=== PATIENT | female | born 2000 | race Caucasian/White ===

== ENCOUNTER 2022-09-06 15:56 | Observation (INO) | payer OTHER, SELFPAY ==
[2022-09-06 16:14] VITALS: BP 111/66; PULSE 112
[2022-09-06 16:30] VITALS: BP 111/65; PULSE 106
[2022-09-06 16:37] VITALS: BMI 25.0
--- NOTE | 2022-09-06 16:38 | LDADM ---
This patient, Helene Marshall, was admitted to OB Post [facility] on 09/06/22 at 15:56. Plans for labor, pain management and were discussed with patient. Patient/family oriented to hospital policies and general routines including ID bracelet, bed and alarms, visiting hours, pain management, procedures, bathroom and other care routines, personal items, smoking policy, room service/diet and guest tray routines, security routines, and visiting hours. Patient/Family are encouraged to report perceived risks to care and to ask questions if they do not understand what they are told or what they should do. See OBIX for further documentation.
[2022-09-06 16:45] VITALS: BP 102/63; PULSE 101
[2022-09-06 16:52] LABS: Appearance Urine Cloudy (Clear); Bacteria Urine Rare /hpf; Bilirubin Urine Negative (Negative); Blood Urine Negative (Negative); Color Urine Yellow (Yellow); Glucose Urine UA Negative (Negative); Ketones Urine Trace mg/dL (Negative); Leukocyte Esterase Ur 2+ LEU/UL (Negative); Nitrate Urine Negative (Negative); Non Pathogenic Casts 0-2; Protein Urine Trace mg/dL (Negative); RBC Urine 0-2 /hpf (0-2); Specific Grav Ur 1.017 (1.001-1.035); Squamous Epithelial Cell Urine Moderate /hpf (Few); WBC Urine 51-100 /hpf; pH Urine 6.5 (5.0-9.0)
[2022-09-06 16:59] LABS: Add Urine Microscopic? YES
[2022-09-06 17:00] VITALS: BP 108/70; PULSE 88
--- NOTE | 2022-09-06 17:14 | PC.NURSE ---
Patient admitted for observation at 1556 with complaints of hypotension and lightheadedness today at work as well as mild abdominal cramping she is rating a 2/10 on the pain scale. tracing is reassuring. Patient PO hydrated and no longer feels cramping or lightheaded. BP measurements have all been within normal limits. UA sent. Paged Dr. Becerra at 1712. returned call at 1713. MD notified of lab results as well as maternal/ status. Verbal orders received for discharge.
--- NOTE | 2022-09-12 09:38 | P.PNOB_ITS ---
OB - Triage/Final Diagnosis Visit Information Reason for evaluation: other ( low blood pressure while ) Comments/Additional reasons for admission: I have assessed the risk for this patient, Helene Marshall, and determined that she would benefit from observation care. Evaluation Laboratory results: Laboratory Tests 09/06/22 16:25 Urine Color Yellow Urine Appearance Cloudy H Urine pH 6.5 Ur Specific [place] 1.017 Urine Protein Trace Urine Glucose (UA) Negative Urine Ketones Trace H Ur Blood (Man) Negative Urine Nitrate Negative Urine Bilirubin Negative Urine Urobilinogen 1.0 Leukocyte Esterase Rfl 2+ H Urine RBC 0-2 Urine WBC 51-100 H Ur Squamous Epith Cells Moderate Urine Bacteria Rare Urine Casts 0-2
== END 2022-09-06 17:38 | disposition home or self-care (01) ==
PROVIDERS: Admitting Provider Obstetrics & Gynecology Gynecology; Visit Provider Obstetrics & Gynecology Gynecology
DX: O26.52 Maternal hypotension syndrome, second trimester (principal); O26.892 Other specified pregnancy related conditions, second trimester; R10.9 Unspecified abdominal pain; Z3A.27 27 weeks gestation of pregnancy
CPT/HCPCS: 81001; 87086; G0378; G0379

== ENCOUNTER 2022-09-16 10:04 | Outpatient (CLI) | payer OTHER, SELFPAY ==
--- NOTE | ~2022-09-16 | US_ITS ---
EXAMINATION: US OB follow up DATE: 09/16/2022 10:55 INDICATION: Size less than dates during second trimester TECHNIQUE: Real-time ultrasound of the pelvis was performed. The interpreting radiologist was not pre sent for the study. COMPARISON: None. FINDINGS: There is a single living fetus in vertex presentation. The placenta is left/posterior. Feta l cardiac activity and movement are noted. heart rate is 169 beats per minute (bpm). The amniotic fluid index is 16 cm which is normal. The following biometric data were obtained: Biparietal diameter (BPD): 6.9 cm; head circumference (HC): 27 cm; abdominal circumference (AC): 24.6 cm; femur length (FL): 5.6 cm. These measurements are concordant. Estimated weight is 1260 g +/- 188 g, which correlates with the 29th percentile when 12/03/2022 is used as estimated date of delivery. As single measurements, these parameters are each equal to the following estimated gestational ages w ith ranges of +/- 2 standard deviations: BPD: 27 weeks 5 days +/- 2 weeks 1 days. HC: 29 weeks 3 days +/- 2 weeks 0 days. AC: 28 weeks 0 days +/- 2 weeks 1 days. FL: 29 weeks 4 days +/- 2 weeks 1 days. estimated gestational age based solely on measurements from this exam is 28 weeks 5 days +/- 2 weeks 0 days. IMPRESSION: 1. Single living fetus in vertex presentation. 2. Normal amniotic fluid index. 3. Estimated weight is 1260 g +/- 188 g, which correlates with the 29th percentile when 12/04/19 23 is used as estimated date of delivery. Reviewed, dictated and finalized at location B. IMPRESSION: 1. Single living fetus in vertex presentation. 2. Normal amniotic fluid index. 3. Estimated weight is 1260 g +/- 188 g, which correlates with the 29th p ercentile when 12/03/2022 is used as estimated date of delivery.
== END 2022-09-16 10:05 | disposition home or self-care (01) ==
PROVIDERS: Visit Provider Obstetrics & Gynecology Gynecology
DX: O36.5930 Maternal care for other known or suspected poor fetal growth, third trimester, not applicable or unspecified (principal)
CPT/HCPCS: 76816

== ENCOUNTER 2022-09-27 00:49 | Outpatient (RCR) | payer OTHER, SELFPAY ==
--- NOTE | 2022-09-27 01:39 | PC.NURSE ---
Dr. Becerra callled about pt here for DFM, pt is now feeling movement with a reactive NST, no contractions or other complaints. Orders to d/c patient home.
== END 2022-12-26 23:59 | disposition home or self-care (01) ==
LOC: ANHOBOP 00:49
PROVIDERS: Visit Provider Obstetrics & Gynecology Gynecology
DX: O36.8130 Decreased fetal movements, third trimester, not applicable or unspecified (principal); Z3A.30 30 weeks gestation of pregnancy
CPT/HCPCS: 59025

== ENCOUNTER 2022-10-12 13:21 | Outpatient (CLI) | payer OTHER, SELFPAY ==
--- NOTE | ~2022-10-12 | US_ITS ---
EXAMINATION: US OB follow up DATE: 10/12/2022 14:43 INDICATION: Size greater than dates. TECHNIQUE: Real-time transabdominal obstetric ultrasound. FINDINGS: Comparison to ultrasound dated 09/16/2022 There is a single living fetus in vertex presentation. The placenta is posterior without placenta pr evia. cardiac activity and movement is noted with a heart rate of 135 beats per minute. T he amniotic fluid volume is normal. RYAN measures 10.9 cm. The following biometric data were obtained: BPD: 80mm corresponds to gestational age 32 weeks 0 days. Head circumference: 298mm corresponds to gestational age 33 weeks 0 days. Abdominal circumference: 280mm corresponds to gestational age 32 weeks 0 days. Femur length: 66mm corresponds to gestational age 34 weeks 0 days. Estimated weight: 2032grams +/- 305grams, 44%.] IMPRESSION: 1. Single living intrauterine in vertex presentation with an estimated gestational age of 32 weeks 4 days by inititial ultrasound. Appropriate interval growth. Reviewed, dictated and finalized at location A. IMPRESSION: 1. Single living intrauterine in vertex presentation with an estimat ed gestational age of 32 weeks 4 days by inititial ultrasound. Appropriate int erval growth.
== END 2022-10-12 13:22 | disposition home or self-care (01) ==
PROVIDERS: Visit Provider Obstetrics & Gynecology Gynecology
DX: O26.843 Uterine size-date discrepancy, third trimester (principal); Z3A.32 32 weeks gestation of pregnancy
CPT/HCPCS: 76816

== ENCOUNTER 2022-10-23 18:54 | Outpatient (CLI) | payer OTHER, SELFPAY ==
[2022-10-23] VITALS (7 sets, daily range): BP systolic 98–115; BP diastolic 55–83; PULSE 96–111
[2022-10-24 04:35] LABS: Glucose Point of Care 88 mg/dl (65-105)
== END 2022-10-23 21:20 | disposition home or self-care (01) ==
LOC: ANHOBOP 18:57 → ANHOBPP 18:57
PROVIDERS: Visit Provider Obstetrics & Gynecology Gynecology
DX: O36.8190 Decreased fetal movements, unspecified trimester, not applicable or unspecified (principal); R73.9 Hyperglycemia, unspecified
CPT/HCPCS: 82948; 99199

== ENCOUNTER 2022-11-02 19:46 | Observation (INO) | payer OTHER, SELFPAY ==
--- NOTE | 2022-11-04 18:29 | PM.OBTRLD ---
OB - Triage/Final Diagnosis Visit Information Date of evaluation: 11/03/22 Reason for evaluation: threatened labor Comments/Additional reasons for admission: I have assessed the risk for this patient, Helene Marshall, and determined that she would benefit from observation care.
== END 2022-11-02 21:36 | disposition home or self-care (01) ==
PROVIDERS: Admitting Provider Advanced Practice Midwife; Visit Provider Advanced Practice Midwife
DX: O47.9 False labor, unspecified (principal); Z3A.00 Weeks of gestation of pregnancy not specified
CPT/HCPCS: G0378; G0379

== ENCOUNTER 2022-11-07 21:48 | Observation (INO) | payer OTHER, SELFPAY ==
--- NOTE | 2022-11-07 23:10 | PC.NURSE ---
Pt had a wet spot on her chux when she got up. ROM plus obtained.
--- NOTE | 2022-11-13 05:01 | PM.OBTRLD ---
OB - Triage/Final Diagnosis Visit Information Date of evaluation: 11/07/22 Reason for evaluation: threatened labor Comments/Additional reasons for admission: I have assessed the risk for this patient, Helene Marshall, and determined that she would benefit from observation care.
== END 2022-11-07 23:55 | disposition home or self-care (01) ==
PROVIDERS: Admitting Provider Advanced Practice Midwife; Visit Provider Advanced Practice Midwife
DX: O47.03 False labor before 37 completed weeks of gestation, third trimester (principal); Z3A.36 36 weeks gestation of pregnancy
CPT/HCPCS: 84112; G0378; G0379

== ENCOUNTER 2022-11-14 23:44 | Inpatient (IN) | payer OTHER, SELFPAY ==
[2022-11-15] VITALS (96 sets, daily range): BP systolic 82–239; BP diastolic 40–216; PULSE 79–217; RESP 18; TEMP 36.5–37.3; O2SAT 80–100; BMI 27.3
[2022-11-15 04:46] LABS: Glucose Point of Care 88 mg/dl (65-105)
[2022-11-15 04:48] LABS: Basophils Percent Auto 0.2 % (0.2-1.2); Eosinophils Percent Auto 0.4 % (0-4.4); Hematocrit 28.2 % (37.0-47.0); Hemoglobin 8.1 g/dL (12.0-15.0); Immature Granulocyte Absolute 0.06 K/mm3 (0.00-0.031); Immature Granulocyte Percent A 0.6 % (0-0.5); Lymphocytes Absolute Auto 1.71 K/mm3 (0.9-3.2); Lymphocytes Percent Auto 16.9 % (18.3-44.2); Mean Corpuscular HGB Conc 28.7 g/dl (32-36); Mean Corpuscular Hemoglobin 20.5 pg (26-34); Mean Corpuscular Volume 71.4 fl (80-100); Mean Platelet Volume 12.3 fl (7.4-10.4); Monocytes Absolute Auto 0.9 K/mm3 (0.1-0.6); Monocytes Percent Auto 8.8 % (2.6-8.5); Neutrophils Absolute Auto 7.4 K/mm3 (1.3-6.7); Neutrophils Percent Auto 73.1 % (45.5-73.1); Platelet Count Result 199 k/mm3 (150-375); Red Blood Count 3.95 M/mm3 (4.2-5.4); Red Cell Distribution Width 16.7 % (11.5-14.5); White Blood Count 10.1 K/mm3 (4.5-10.0)
--- NOTE | 2022-11-15 04:54 | LDADM ---
This patient, Helene Marshall, was admitted to Labor/Delivery/Recovery 107 on 11/14/22 at 23:44. Plans for labor, pain management and were discussed with patient. Patient/family oriented to hospital policies and general routines including ID bracelet, bed and alarms, visiting hours, pain management, procedures, bathroom and other care routines, personal items, smoking policy, room service/diet and guest tray routines, infant security routines, and visiting hours. Patient/Family are encouraged to report perceived risks to care and to ask questions if they do not understand what they are told or what they should do. See OBIX for further documentation.
[2022-11-15] MEDS: AMPICILLIN 2 GM/NS 100 ML 2 GM/100 ML BAG IVPB (05:02)
[2022-11-15] MEDS: LACTATED RINGERS 1,000 ML 125 ML IV CONT ×2 (05:08→13:19)
[2022-11-15 06:24] LABS: Glucose Point of Care 84 mg/dl (65-105)
--- NOTE | 2022-11-15 07:37 | WPDHPUPDATE1 ---
History and Physical Update Update Date/Time: 11/15/22 07:37 History and Physical has been reviewed, including an updated exam of the patient. There are NO changes in the patient's condition. Risks, benefits, and alternatives have been discussed and questions answered. Patient agrees to proceed with procedure.
--- NOTE | 2022-11-15 07:38 | PM.OBPNLAB ---
Pain Control Date/time seen: 11/15/22 07:15 Pain control: tolerating well Comments: Reports irregular contractions. Waiting on FOB to arrive and then plans to ambulate in hallway. Pelvic Exam Comments: no exam at this time. Contractions Monitor mode: External Contraction pattern: Irregular Contraction intensity: Moderate Status status: Category l Assessment and Plan Plan: continuous present management Comments: CNM at bedside. 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 Discussed option of braking water. Pt will consider, but plan to wait until 2nd dose of antibiotics is infusing. Pt plans unmedicated delivery. Anticipate vaginal . Dr. Becerra updated.
[2022-11-15] MEDS: AMPICILLIN 1 GM/NS 50 ML 1 GM/50 ML BAG IVPB ×2 (08:51→13:24)
[2022-11-15 08:58] LABS: Glucose Point of Care 87 mg/dl (65-105)
[2022-11-15 09:58] LABS: Rapid Plasma Reagin Non-Reactive (NonReactive)
--- NOTE | 2022-11-15 10:51 | PM.OBPNLAB ---
Pain Control Date/time seen: 11/15/22 10:45 Pain control: tolerating well Comments: Feeling consistent period like cramping Pelvic Exam Dilation (cm): 5 Effacement (%): 80 station: -2 Amniotic membrane status: Intact Comments: head well applied to cervix. Contractions Monitor mode: External Contraction pattern: Irregular Contraction intensity: Moderate Status status: Category l Comments: Baseline 135, + accelerations. Assessment and Plan Comments: CNM to bedside. Discussed plan of care an option for amniotomy. Discussed risks, benefits, and expectations of breaking water. Patient is agreeable. Amniotomy performed and there was a large return of clear amniotic fluid. Patient tolerated procedure well. Anticipate vaginal . Dr. Becerra updated.
[2022-11-15 11:12] LABS: Glucose Point of Care 95 mg/dl (65-105)
[2022-11-15 12:33] LABS: Glucose Point of Care 79 mg/dl (65-105)
--- NOTE | 2022-11-15 12:52 | WPDANESEPPF ---
Anes - Initial Pre Proc Eval Procedure: Labor Epidural Date/Time: 11/15/22 12:52 Surgeon: Gabriella Becerra MD Pre Op Diagnosis: Labor pain Pre Op Diagnosis: Contractions Patient Data Age: 22 Gender: F Height: 1.6 m Weight: 70 kg Last Vital Signs Temp 37.3 C 11/15/22 09:00 Pulse 108 H 11/15/22 12:17 BP 110/69 11/15/22 12:17 Allergies Allergy/AdvReac Type Severity Reaction Status Date / Time azithromycin Allergy Hives Verified 11/04/22 12:06 Home Medications Medication Instructions Recorded Confirmed Type insulin NPH isoph U-100 human 100 4 unit subcut HS 11/04/22 11/04/22 History unit/mL subcutaneous suspension (Humulin N NPH U-100 Insulin (isophane susp)) Laboratory Tests 11/15/22 11/15/22 11/15/22 04:21 04:41 06:18 WBC 10.1 H K/mm3 (4.5-10.0) RBC 3.95 L M/mm3 (4.2-5.4) Hgb 8.1 L g/dL (12.0-15.0) Hct 28.2 L % (37.0-47.0) MCV 71.4 L fl (80-100) MCH 20.5 L pg (26-34) MCHC 28.7 L g/dl (32-36) RDW 16.7 H % (11.5-14.5) Plt Count 199 k/mm3 (150-375) MPV 12.3 H fl (7.4-10.4) Immature Gran % (Auto) 0.6 H % (0-0.5) Neut % (Auto) 73.1 % (45.5-73.1) Lymph % (Auto) 16.9 L % (18.3-44.2) [place] % (Auto) 8.8 H % (2.6-8.5) Eos % (Auto) 0.4 % (0-4.4) Baso % (Auto) 0.2 % (0.2-1.2) Lymph # (Auto) 1.71 K/mm3 (0.9-3.2) [place] # (Auto) 0.9 H K/mm3 (0.1-0.6) Eos # (Auto) 0.0 K/mm3 (0-0.3) Baso # (Auto) 0.0 K/mm3 (0.0-0.1) Abs Immat Gran (auto) 0.06 H K/mm3 (0.00-0.031) Absolute Neuts (auto) 7.4 H K/mm3 (1.3-6.7) Absolute Nucleated RBC 0.0 K/mm3 (0.0-0.012) Nucleated RBC % 0.0 % (0.0-0.2) POC Capillary Glucose 88 mg/dl 84 mg/dl (65-105) (65-105) RPR Non-reactive (NonReactive) Blood Type A Positive Antibody Screen Negative 11/15/22 11/15/22 11/15/22 08:53 11:07 12:09 WBC RBC Hgb Hct MCV MCH MCHC RDW Plt Count MPV Immature Gran % (Auto) Neut % (Auto) Lymph % (Auto) [place] % (Auto) Eos % (Auto) Baso % (Auto) Lymph # (Auto) [place] # (Auto) Eos # (Auto) Baso # (Auto) Abs Immat Gran (auto) Absolute Neuts (auto) Absolute Nucleated RBC Nucleated RBC % POC Capillary Glucose 87 mg/dl 95 mg/dl 79 mg/dl (65-105) (65-105) (65-105) RPR Blood Type Antibody Screen : gestational age (ZACH 12/03/22) Patient hx anesthesia problems: none Family hx anesthesia problems: none Results Review: All pre-operative results and documents have been reviewed as part of the pre-operative evaluation. [facility] Family History Family History Other Unknown family medical history Social History Social History Smoking status: Never smoker Substance use: never Lack of Transportation: No Lack of Food: Never True Current Housing: I Have Housing Concerned About Future Housing: No Difficulty Paying Gas/Electric Bills: No Difficulty Paying for Meds: No Currently Unemployed: No Education: Grade School Difficulty w/ Childcare or Family Care: No Spiritual care concerns: No Anes - Eval Final PreProcedure Day of Procedure 11/15/22 12:52 Results Review: All pre-operative results and documents have been reviewed as part of the pre-operative evaluation. Informed Consent: The patient's anesthetic
[2022-11-15] MEDS: CALCIUM CARBONATE (TUMS) 500 MG (200 MG ELEMENTAL) PO (13:24)
[2022-11-15] MEDS: OXYTOCIN 30 UNITS/NS 500 ML 30 UNITS/500 ML BAG IV CONT (13:27)
[2022-11-15 13:36] LABS: Glucose Point of Care 89 mg/dl (65-105)
[2022-11-15 15:16] LABS: Glucose Point of Care 75 mg/dl (65-105)
--- NOTE | 2022-11-15 16:06 | PM.OBPRVD ---
OB - Delivery Note Procedure Delivery date: 11/15/22 Procedure: Events: Gestational Diabetes (GDMA2) and Positive Group B Strep (GBS) Induction method: None Delivery augmentation: Rupture of Membranes Delivery monitor: External FHT and External Uterine Route of delivery: Episiotomy description: None Laceration Description: None Specimen: Yes Quantitative Blood Loss (ml): 50 Anesthesia type: Epidural Disposition: Floor Narrative: Patient arrived having irregular uterine contractions. She made change from 4-5 cm. 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 She latently labored overnight but did not make further cervical change. Amniotomy was performed and she progressed to complete dilation with oxytocin augmentation. She pushed very well and delivered the head over an intact perineum. There was a loose nuchal cord noted. The was delivered to the somersault maneuver with easy delivery of the anterior and posterior shoulders. The infant was placed on the maternal abdomen and care was transferred to nursery staff. After approximately 20 seconds of life, nursery staff requests that the cord be doubly clamped and cut. This was done and the was taken to the warmer. Cord blood, cord gases, and cord segment were obtained. The placenta delivered spontaneously in the [place] presentation. Also recounts were correct. There was excellent hemostasis and uterine tone. Baby Date of : 11/15/22 Time of : 15:48 Weeks of gestation at delivery: 37 gender: Male Weight (pounds): 6 Weight (ounces): 15 presentation: vertex position: Left Occiput Anterior Placenta delivery description: Spontaneous and Normal Configuration (slight marginal insertion) Cord Vessel Description: 3 Vessels, Nuchal Cord, Loose and Clamped/Cut
--- NOTE | 2022-11-15 16:12 | PM.OBDSVD ---
DS: Admitting Diagnosis Discharge Date 11/15/22 Admitting Diagnosis 22 y.o at 37 weeks gestation GDMA2 GBS+ Anxiety/depression Vape use in DS: Discharge Diagnosis Discharge Diagnosis (1) Anxiety: Code(s): F41.9 - Anxiety disorder, unspecified Status: Acute (2) Depression: Code(s): F32.A - Depression, unspecified Status: Acute (3) (normal spontaneous vaginal delivery): Code(s): O80 - Encounter for full-term uncomplicated delivery Status: Acute (4) Anemia: Code(s): D64.9 - Anemia, unspecified Status: Acute OB - DS: Summary Hospital Course Hospital Course: Uncomplicated OB Procedures : Ultrasound and Other (Blood glucose monitoring) OB Procedures Intrapartum: Spontaneous Vag Delivery and GBS prophylaxis OB Procedures: : None Peripartum Data Infant Delivery Method: Natural Vaginal Laceration Description: None Episiotomy description: None complications: none Status at Discharge Functional status at discharge: independent ambulation Overall status at discharge: patient is progressing back to baseline Time Spent with Patient Time attestation: Total time spent providing and/or coordinating discharge services: DS: Data Data Completed and Pending Labs on day of discharge: Labs from last 24 hours 11/15/22 11/15/22 11/15/22 15:05 13:32 12:09 WBC RBC Hgb Hct MCV MCH MCHC RDW Plt Count MPV Immature Gran % (Auto) Neut % (Auto) Lymph % (Auto) [place] % (Auto) Eos % (Auto) Baso % (Auto) Lymph # (Auto) [place] # (Auto) Eos # (Auto) Baso # (Auto) Abs Immat Gran (auto) Absolute Neuts (auto) Absolute Nucleated RBC Nucleated RBC % POC Capillary Glucose 75 89 79 RPR Blood Type Antibody Screen 11/15/22 11/15/22 11/15/22 11:07 08:53 06:18 WBC RBC Hgb Hct MCV MCH MCHC RDW Plt Count MPV Immature Gran % (Auto) Neut % (Auto) Lymph % (Auto) [place] % (Auto) Eos % (Auto) Baso % (Auto) Lymph # (Auto) [place] # (Auto) Eos # (Auto) Baso # (Auto) Abs Immat Gran (auto) Absolute Neuts (auto) Absolute Nucleated RBC Nucleated RBC % POC Capillary Glucose 95 87 84 RPR Blood Type Antibody Screen 11/15/22 11/15/22 04:41 04:21 WBC 10.1 H RBC 3.95 L Hgb 8.1 L Hct 28.2 L MCV 71.4 L MCH 20.5 L MCHC 28.7 L RDW 16.7 H Plt Count 199 MPV 12.3 H Immature Gran % (Auto) 0.6 H Neut % (Auto) 73.1 Lymph % (Auto) 16.9 L [place] % (Auto) 8.8 H Eos % (Auto) 0.4 Baso % (Auto) 0.2 Lymph # (Auto) 1.71 [place] # (Auto) 0.9 H Eos # (Auto) 0.0 Baso # (Auto) 0.0 Abs Immat Gran (auto) 0.06 H Absolute Neuts (auto) 7.4 H Absolute Nucleated RBC 0.0 Nucleated RBC % 0.0 POC Capillary Glucose 88 RPR Non-reactive Blood Type A Positive Antibody Screen Negative Discharge Plan Discharge Attending physician on discharge: Gabriella Becerra Consulting providers: Marilee Davidson; Marysol Horn; Valeria Wheat Discharging Clinician: Gabriella Becerra Anticipated Discharge Date/Time: 11/15/22 16:14 Patient Disposition: Home, Self-Care Activity: july shower Diet: as tolerated Wound Care Instructions: follow printed instructions Discharge Instructions: Education: Mom and Baby Guide Given to: Mother Follow-Up: Call your delivering provider's office for an appointment to be seen in: 4 Weeks Mom and baby should come to the [facility] for the follow-up appointment. Appointment Date/Time: November 18, 2022 at 9:00 am What to expect at your follow-up visit: Blood Pressure Check Call [phone] if you are unable to keep your appointment time. BREAST CARE: * Wear a snug supportive bra. * For engorgement discomfort: Bottle Feeding: * May ap
[2022-11-15] MEDS: OXYTOCIN 30 UNITS/NS 500 ML 30 UNITS/500 ML BAG 125 UNITS IV CONT (16:22)
[2022-11-15] MEDS: ACETAMINOPHEN 325 MG TABLET 650 MG PO ×2 (16:36→23:50)
--- NOTE | 2022-11-15 19:00 | OBPPTRN ---
Patient transferred to post room #282 via w/c. Oriented to unit, room, information board, rooming in, admission packet and security measures. Patient verbalizes understanding.
[2022-11-15] MEDS: BENZOCAINE 20% AER SPR (*SP) 56 GM CAN 1 SPRAY TOPICAL (19:12)
[2022-11-15] MEDS: WITCH HAZEL 40 PADS 1 PAD TOPICAL (19:12)
[2022-11-15] MEDS: POLYSACCHARIDE IRON COMPLEX 150 MG CAPSULE PO (19:23)
[2022-11-15] MEDS: IBUPROFEN 600 MG TABLET PO (19:23)
[2022-11-16 00:10] VITALS: BP 112/73; PULSE 82; RESP 18; TEMP 36.8
[2022-11-16 05:01] LABS: Hematocrit 25.6 % (37.0-47.0); Hemoglobin 7.4 g/dL (12.0-15.0)
--- NOTE | 2022-11-16 07:45 | PC.NURSE ---
PT introductions made and plan of care discussed per post , pain management, bottle feeding, daily care activities and pending discharge to home. PT sole recipient of such instructions and no barriers to learning identified at this time. PT received such instructions per one to one discussion, mom baby care guide and demonstrations this shift. PT verbalized understanding of such care.
--- NOTE | 2022-11-16 08:08 | PM.OBPNVD ---
OB - PN: Subj Subjective Date/time seen: 11/16/22 0740 Patient comments: no complaints, pain well controlled and tolerating diet [place] baby status: doing well and bottle feeding well (pt reports some regurgitation) feeding status: exclusively bottle feeding Narrative: PPD 1 from . Denies heavy bleeding or passing large clots. Denies dizziness with ambulation or lightheadness. OB - PN: Obj Data Labs 11/16/22 04:27 Labs: Laboratory Results - last 24 hr 11/15/22 11/15/22 11/15/22 04:41 08:53 11:07 Hgb Hct POC Capillary Glucose 87 95 RPR Non-reactive 11/15/22 11/15/22 11/15/22 12:09 13:32 15:05 Hgb Hct POC Capillary Glucose 79 89 75 RPR 11/16/22 04:27 Hgb 7.4 L Hct 25.6 L POC Capillary Glucose RPR OB - PN A/P Assessment and Plan (1) Anemia: Code(s): D64.9 - Anemia, unspecified Status: Acute Assessment and Plan: plan IV iron (2) (normal spontaneous vaginal delivery): Code(s): O80 - Encounter for full-term uncomplicated delivery Status: Acute Assessment and Plan: findings WNL (3) Depression: Code(s): F32.A - Depression, unspecified Status: Acute Assessment and Plan: Mood stable (4) Anxiety: Code(s): F41.9 - Anxiety disorder, unspecified Status: Acute Plan day: 1 Plan: routine care Time Spent With Patient Time: Total time spent is greater than 50% in coordination of care (as documented) at patient's floor/unit and/or counseling patient: Review of Systems Review of Systems: All systems reviewed & are unremarkable except as noted in HPI and below Exam Narrative: Alert and oriented. Mood is pleasant and cooperative. Perineum with minimal edema. Fundus firm and below umbilicus. Const: General: cooperative, healthy appearing, no acute distress and alert Orientation/consciousness: patient oriented x3 Limitations: no limitations Resp: Effort & Inspection: normal respiratory effort and able to speak in complete sentences Auscultation: clear to auscultation bilaterally Cardio: Rate: regular rate GI: Inspection: normal to inspection Auscultation: normal bowel sounds : Speculum Exam - Vagina: vaginal bleeding OB/external & speculum: vaginal bleeding Skin: General skin exam: normal color and no rashes or lesions noted Neuro: General: patient oriented x3 and moves all extremities Cognition (Neuro): normal cognition Extrem: General: normal to inspection and no calf tenderness Psych: Appearance: grossly normal Mental Status: mental status grossly normal Affect: normal affect Thought process: Normal thought process present
[2022-11-16 08:25] VITALS: BP 114/69; PULSE 71; RESP 18; TEMP 36.6; O2SAT 100
[2022-11-16] MEDS: SODIUM CHLORIDE 0.9% IV 100 ML 60 ML (10:09)
--- NOTE | 2022-11-16 10:24 | WPDANLDPN2 ---
Anes-Prog Note L&D Date/Time: 11/16/22 10:24 Neuro status: Neuro function grossly intact. Cardiovascular status: normal Respiratory status: normal Airway patency: baseline Mental status: baseline Post-Op hydration status: normal Vital Signs: Last Vital Signs Temp 36.6 C 11/16/22 08:25 Pulse 71 11/16/22 08:25 Resp 18 11/16/22 08:25 BP 114/69 11/16/22 08:25 Pulse Ox 100 11/16/22 08:25 O2 Del Method Room Air 11/15/22 19:10 Pain score (VAS): 0 I/O: Intake & Output 11/15/22 11/16/22 11/16/22 23:59 07:59 15:59 Intake Total 550 Output Total 100 Balance 450 Post-procedural complaints: none Patient feedback: Patient satisfied with anesthetic care.
[2022-11-16] MEDS: IBUPROFEN 600 MG TABLET PO ×3 (10:33→23:30)
[2022-11-16] MEDS: MULTIVIT/MIN/PREN/FOL AC/IRON TABLET 1 TAB PO (10:33)
[2022-11-16] MEDS: DOCUSATE SODIUM 100 MG CAPSULE PO ×2 (10:33→17:48)
[2022-11-16] MEDS: ACETAMINOPHEN 325 MG TABLET 650 MG PO ×3 (10:34→23:30)
[2022-11-16] MEDS: POLYSACCHARIDE IRON COMPLEX 150 MG CAPSULE PO ×2 (10:34→17:48)
[2022-11-16] MEDS: IRON SUCROSE COMPLEX 200 MG in SODIUM CHLORIDE 0.9% IV 50 ML 120 MG IVPB (10:45)
[2022-11-16 13:06] VITALS: BP 97/57; PULSE 74; RESP 16; TEMP 36.9; O2SAT 100
[2022-11-16 20:12] VITALS: BP 105/73; PULSE 92; RESP 16; TEMP 36.6; O2SAT 99
[2022-11-17 05:31] LABS: Hematocrit 26.1 % (37.0-47.0); Hemoglobin 7.4 g/dL (12.0-15.0)
--- NOTE | 2022-11-17 07:00 | PC.NURSE ---
PT introductions made and plan of care discussed per post , pain management, bottle feeding, daily care activities and pending discharge to home. PT sole recipient of such instructions and no barriers to learning identified at this time. Pt received such instructions per mom baby care guide, demonstrations, one to one discussion this shift. PT verbalized understanding of such care.
--- NOTE | 2022-11-17 07:35 | PM.OBPNVD ---
OB - PN: Subj Subjective Date/time seen: 11/17/22 07:35 Patient comments: no complaints and pain well controlled baby status: doing well OB - PN: Obj Data Labs 11/17/22 03:53 Labs: Laboratory Results - last 24 hr 11/17/22 03:53 Hgb 7.4 L Hct 26.1 L OB - PN A/P Plan day: 2 Plan: routine care, discharge home, follow up 6 weeks and other (Plans DepoProvera ) Time Spent With Patient Time: Total time spent is greater than 50% in coordination of care (as documented) at patient's floor/unit and/or counseling patient: Exam : Bimanual exam- vagina & uterus: other (Uterus firm, nt @U)
[2022-11-17 07:45] VITALS: BP 117/78; PULSE 88; RESP 18; TEMP 36.6; O2SAT 100
--- NOTE | 2022-11-17 10:45 | PC.NURSE ---
Patient was given the opportunity to view the discharge video Mother & Baby Care, The First Two Weeks and to ask questions. Patient declined viewing the video and has been given the mother/baby guide for home reference. PT received discharge instructions per protocol and verbalized understanding of such care.
[2022-11-17] MEDS: ACETAMINOPHEN 325 MG TABLET 650 MG PO (11:00)
[2022-11-17] MEDS: DOCUSATE SODIUM 100 MG CAPSULE PO (11:01)
[2022-11-17] MEDS: POLYSACCHARIDE IRON COMPLEX 150 MG CAPSULE PO (11:01)
--- NOTE | 2022-11-17 11:30 | PC.NURSE ---
PT discharged to home ambulatory unaccompanied to waiting car. PT drove herself home though had been advised and instructed to find transportation home. PT states she understands but will drive home. Follow up appts confirmed
[2022-11-18 09:21] VITALS: BP 114/73; PULSE 85; RESP 18; TEMP 36.9; O2SAT 100
== END 2022-11-17 11:30 | disposition home or self-care (01) | DRG 560 ==
LOC: ANHLDR 11-15 16:15 → ANHOB2 11-15 19:36
PROVIDERS: Advanced Practice Midwife; Admitting Provider Obstetrics & Gynecology Gynecology; Visit Provider Obstetrics & Gynecology Gynecology
DX: O24.424 Gestational diabetes mellitus in childbirth, insulin controlled (principal); Z37.0 Single live birth; O62.3 Precipitate labor; O99.824 Streptococcus B carrier state complicating childbirth; O69.81X0 Labor and delivery complicated by cord around neck, without compression, not applicable or unspecified; O99.02 Anemia complicating childbirth; Z3A.37 37 weeks gestation of pregnancy
CPT/HCPCS: 36415; 82948; 85014; 85018; 85025; 86592; 86850; 86900; 86901; 88307; A9270; J0290; J1050; J1756; J2590; J2795; J7120

== ENCOUNTER 2024-11-19 15:11 | Outpatient (CLI) | payer OTHER, SELFPAY ==
--- NOTE | ~2024-11-19 | US_ITS ---
EXAMINATION: US OB /maternal detail DATE: 11/19/2024 17:13 INDICATION: Assess anatomy TECHNIQUE: Multiple obstetric sonographic images performed. FINDINGS: There is a single living fetus in variable presentation. The placenta is anterior and not low-lying. The placenta appears partially circumvallate with elevation of one side of the placenta. Anechoic fluid is seen alongside the elevated margin of the placenta and separate from the fetus by thin linear membrane which suggests some residual chorionic amniotic separation versus less likely small subchorionic hematoma. Cervical length measures 3.6 cm. Amniotic fluid volume is subjectively normal. heart motion is observed on the cine imaging. The following anatomy was identified as normal: Ventricles, choroid plexus, falx and cava septum pellucidum Cerebellum and cisterna magna Nuchal fold Upper lip Spine Four-chamber heart and left ventricular outflow tract views aside from an internal echogenic focus in the right ventricle. Right ventricular outflow tract view is nondiagnostic. Diaphragm Stomach Kidneys Bladder 3 vessel cord and cord insertion Bilateral upper and lower extremities including hands and feet The following biometric data were obtained: BPD: 4.3 cm -> 19 weeks 0 days Head circumference: 16.8 cm -> 19 weeks 3 days Abdominal circumference: 13.3 cm -> 18 weeks 5 days Femur length: 3.1 cm -> 19 weeks 5 days Head circumference to abdominal circumference ratio: 1.27 (normal range 1.09-1.26). These measurements are otherwise concordant. Estimated weight: 282 g (+/-) 42 g. or 10 oz. (+/-) 1 oz. IMPRESSION: 1. Single living fetus with variable presentation. 2. Gestational age by ultrasound of 19 weeks 2 day(s) (+/-) 1 week 2 day(s) with ultrasound estimated date of delivery (ZACH) of 04/13/2025. Please correlate with clinical information or earlier ultrasounds for most accurate ZACH. 3. Echogenic intracardiac focus within the right ventricle and nondiagnostic right ventricular outflow tract view. Otherwise normal survey. 4. Anterior placenta which appears partially circumvallate with elevation of one side of the placenta with adjacent likely small region of chorioamnionic separation versus less likely subchorionic hematoma. Reviewed, dictated and finalized at location A. IMPRESSION: 1. Single living fetus with variable presentation. 2. Gestational age by ultrasound of 19 weeks 2 day(s) (+/-) 1 week 2 day(s) w ith ultrasound estimated date of delivery (ZACH) of 04/13/2025. Please correlate with clinical information or earlier ultrasounds for most accurate ZACH. 3. Echogenic intracardiac focus within the right ventricle and nondiagnostic ri ght ventricular outflow tract view. Otherwise normal survey. 4. Anterior placenta which appears partially circumvallate with elevation of on e side of the placenta with adjacent likely small region of chorioamnionic sepa ration versus less likely subchorionic hematoma.
--- OUTSIDE RECORDS SUMMARY | 2024-11-19 15:22 | XMS_ITS | Clinical Summary ---
Author Organization [facility] Address [address] [place] [address] Care Team Providers Care Senior Sales Engineer Name Role Phone Gabriella Becerra MD Primary Care Provider Social History Tobacco Use Types Packs/Day Years Used Date Smoking Tobacco: Never Assessed Comments Unknown Sex and Gender Information Value Date Recorded Sex Assigned at Not on file Legal Sex Female 2:47 PM CDT Gender Identity Not on file Sexual Orientation Not on file Plan of Treatment Health Maintenance Due Date Last Done Comments Hepatitis C Virus (HCV) Screening 1998 Human Papillomavirus (HPV) Immunization (1 - 3-dose series) 2013 SARS-COV-2 Immunization ( season) 2023 Influenza Immunization (#1) 2024 Respiratory Syncytial Virus (RSV) Immunization (Adult) (1 - 1-dose 75+ series) 2073 Hepatitis B Immunization Completed 000, 1998, 1998 DTaP/Tdap/Td Immunization Discontinued 2012, 11/27/2003, 10/22/1999, Additional history exists TdaP Immunization Completed 11/22/2012 Meningococcal Immunization (ACWY) Aged Out No longer eligible based on patient's age to complete this topic Pneumococcal Immunization Combined Aged Out No longer eligible based on patient's age to complete this topic Rotavirus Immunization Aged Out No lo nger eligible based on patient's age to complete this topic Insurance MEDICAID [facility] [employer] Care Teams Senior Sales Engineer Relationship Specialty Start Date End Date Gabriella Becerra MD [address] [address] PCP - General Obstetrics & Gynecology 08/06/22
--- OUTSIDE RECORDS SUMMARY | 2024-11-19 15:22 | XMS_ITS | Clinical Summary ---
Author Organization [facility] Address [address] [place] [address] Phone Care Team Providers Care Director Of Income Tax Name Role Phone Unavailable Primary Care Provider Unavailabl e Social History Tobacco Use Types Packs/Day Years Used Date Smoking Tobacco: Never Assessed Comments Unknown Sex and Gender Information Value Date Recorded Sex Assigned at Not on file Legal Sex Female 8:22 AM CDT Gender Identity Not on file Sexual Orientation Not on file Plan of Treatment Health Maintenance Due Date Last Done Comments HPV VACCINES (1 - 3-dose series) 2013 DTAP/TDAP/TD VACCINES (1 - Tdap) 2017 HEPATITIS B VACCINES (1 of 3 - 19+ 3-dose series) 04/21 CERVICAL CANCER SCREENING 2019 HPV/Cotest (21-29) 2019 PAP SMEAR 2019 INFLUENZA VACCINE (#1) 2024 Insurance [facility] MEDICAID
--- OUTSIDE RECORDS SUMMARY | 2024-11-19 15:22 | XMS_ITS | Clinical Summary ---
Author Organization [facility] Address [address] [place] [address] Care Team Providers Care Call Or Contact Centre Team Leader Name Role Phone Unavailable Primary Care Provider Unavailabl e Source Comments [facility],non-owned Affiliates and Associated Physician Practices is amultiple site organization consisting of ambulatory clinics and hospital sitesin [place], [place]. This disclosure is being madepursuant to the Care Everywhere program and may not contain all information available regarding this patient. Last updated 17.[facility] Active Problems Patient Care Coordination No te Formatting of this note migh t be different from the original. 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 Gender Identity Not on file Sexual Orientation Not on file Plan of Treatment Health Maintenance Due Date Last Done Comments HIV SCREENING 2013 HPV VACCINE (1 - 3-dose series) 2013 HEPATITIS C SCREENING 05/06/2016 DTAP/TDAP/TD VACCINES (1 - Tdap) 2017 HEPATITIS B VACCINE (1 of 3 - 19+ 3-dose series) 2017 PAP SMEAR 2019 COVID-19 VACCINE (1 - 2023-2 5 season) 2023 DEPRESSION SCREENING 03/20/2024 INFLUENZA VACCINE (#1) 2024 ZOSTER VACCINE (1 of 2) 2048 HIB VACCINE Aged Out No longer eligi ble based on patient's age to complete this topic MENINGOCOCCAL (Group B) VACC INE SHARED DECISION-MAKING Aged Out No longer eligibl e based on patient's age to complete this topic MENINGOCOCCAL GROUPS A/C/Y/W VACCINE Aged Out No longer eligible b ased on patient's age to complete this topic PNEUMOCOCCAL VACCINE Aged Out No long er eligible based on patient's age to complete this topic Insurance [facility]
== END 2024-11-19 15:12 | disposition home or self-care (01) ==
PROVIDERS: Visit Provider Obstetrics & Gynecology Gynecology
DX: Z36.9 Encounter for antenatal screening, unspecified (principal)
CPT/HCPCS: 76805

== ENCOUNTER 2025-02-16 19:56 | Outpatient (CLI) | payer OTHER, SELFPAY ==
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
--- OUTSIDE RECORDS SUMMARY | 2025-02-16 20:03 | XMS_ITS | Clinical Summary ---
Author Organization [facility] Address [address] [place] [address] Care Team Providers Care Senior Mechanical Project Engineer Name Role Phone Gabriella Becerra MD [...] Comments Hepatitis C Virus (HCV) Screening 1998 Varicella Immunization (2 of 2 - 2-dose childhood series) 2002 12/04/2001 Human Papillomavirus (HPV) Immunization (1 - 3-dose series) 2013 Influenza Immunization (#1) 2024 SARS-COV-2 Immunization ( season) 2024 Respiratory Syncytial Virus (RSV) Immunization (Adult) [...] age to complete this topic Insurance MEDICAID [facility] Care Teams Senior Mechanical Project Engineer Relationship Specialty Start Date End Date Gabriella Becerra MD [address] [address] PCP - General Obstetrics & Gynecology 08/06/22
--- OUTSIDE RECORDS SUMMARY | 2025-02-16 20:03 | XMS_ITS | Clinical Summary ---
Author Organization [facility] Address [address] [place] [address] Care Team Providers Care Web Operations Lead Name Role Phone Unavailable Primary Care Provider Unavailabl e Source Comments [facility],non-owned Affiliates and Associated Physician Practices is amultiple site organization consisting of ambulatory clinics and hospital sitesin [place], [place], [place] and [place]. This disclosure is being madepursuant to the Care Everywhere program and may not contain all information available regarding this patient. Last updated 17.[facility] Allergies Active Allergy Reactions Criticality Noted Date Comments Azithromycin Unknown 12/10/2024 Active Problems Patient Care Coordination No te Formatting of this note migh t be different from the original. [facility] 12/2015 Problem Noted Date Diagnosed Date Normal ultrasound 01/13/2016 Estimated Date of Delivery Comme nts Yes 04/19/2025 Based on last me nstrual period of 07/13/2024 Encounters Date Type Department Care Team Description 01/14/2025 10:49 AM CDT - 01/14/2025 11:59 PM CDT Hospital Encounter [facility] [address] [place] [id number] Minerva Cantor MD Discharge Disposition: Home or Self Care 12/17/2024 10:30 AM CDT - 12/17/2024 11:59 PM CDT Hospital Encounter [facility] [address] [place] [id number] Suleiman Silva MD Boyle, Annelee C, MD Discharge Disposition: Home or Self Care from Last 3 Months Social History Tobacco Use Types Packs/Day Years Used Date Smoking Tobacco: Never Assessed Estimated Date of Delivery Comme nts Yes 04/19/2025 Based on last me nstrual period of 07/13/2024 Sex and Gender Information Value Date Recorded Sex Assigned at Not on file Legal Sex Female 5:38 AM 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 Gender Identity Not on file Sexual Orientation Not on file Plan of Treatment Health Maintenance Due Date Last Done Comments HIV SCREENING 2013 HPV VACCINE (1 - 3-dose series) 2013 HEPATITIS C SCREENING 05/06/2016 DTAP/TDAP/TD VACCINES (1 - Tdap) 2017 HEPATITIS B VACCINE (1 of 3 - 19+ 3-dose series) 2017 PAP SMEAR 2019 DEPRESSION SCREENING 03/20/2024 COVID-19 VACCINE (1 - 2024-2 6 season) 2024 INFLUENZA VACCINE (#1) 2024 OB-ONE HOUR GLUCOSE 01/11/2025 OB-TDAP CURRENT 01/18/2025 11/22/2012 OB-RHOGAM INJECTION 01/25/2025 Respiratory Syncytial Virus (RSV) Vaccine Pt: or over 60 yrs (1 - Risk 1-dose series) 02/22/2025 ZOSTER VACCINE (1 of 2) 2048 HIB [...] Procedure Name Priority Date/Time Associated Diagnosis Comments SONOGRAM - COMPLETE Routine 01/14/2025 11:01 AM CDT echogenic intracardiac focus on ultrasound Abnormal placenta affecting management of mother in second trimester (HCC) Encounter for follow-up ultrasound of anatomy ([facility]) Encounter for ultrasound to assess growth (HCC) 26 weeks gestation of ([facility]) SONOGRAM - COMPLETE Routine 12/17/2024 10:37 AM CDT echogenic intracardiac focus on ultrasound Abnormal placenta affecting management of mother in second trimester (HCC) Sixth (HCC) 22 weeks gestation of ([facility]) Encounter for anatomic survey ([facility]) from Last 3 Months Results * Sonogram - Complete (01/14/2025 11:01 AM CDT) Only the most recent of2 resultswithin the time period is included. Linked Results Indication ======== Incomplete anatomy Placenta disorder, unspecified History ====== OB History 6. Para 3 [id number] 1. live 2016. Gest. age 39 w + 0 d. Weight 3,941 g. Details: Vaginal delivery 2. live 2019. Gest. age 39 w + 0 d. Weight 3,487 g. Details: Vaginal delivery 3. live 2022. Gest. age 37 w + 3 d. Weight 3,147 g. Details: Vaginal delivery 4. elective termination. Details: x2 Lab Tests Test Date Result Genetic screening Declined Maternal Assessment Physical Exam Height 157 cm, 5 ft 2 in. Initial weight 68 kg, 151 lb. Initial BMI 27.62 kg/m Method ====== Transabdominal ultrasound. View: Good view ========= Cabrales . Number of fetuses: 1 Dating ====== Date Details Gest. age ZACH LMP 07/13/2024 26 w + 3 d 04/19/2025 Stated ZACH 26 w + 5 d 04/17/2025 U/S 01/14/2025 based upon AC, BPD, Femur, HC 27 w + 4 d 04/11/2025 Assigned dating based on stated ZACH, selected on 01/14/2025 26 w + 5 d 04/17/2025 General Evaluation Cardiac activity present. FHR 154 bpm. Presentation: breech Placenta: Placental site: anterior Umbilical cord: 3-vessel cord and normal placental cord insertion site were documented previously Amniotic fluid: Amount of AF: normal. MVP 5.1 cm Biometry BPD 66.0 mm 26w 4d 36% Hadlock HC 255.0 mm 27w 5d 56% Hadlock AC 238.1 mm 28w 1d 82% Hadlock Femur 52.7 mm 28w 0d 75% Hadlock HC / AC 1.07 Weight Calculation: EFW 1,150 g 84% Hadlock EFW (lb,oz) 2 lb 9 oz EFW by Hadlock ([id number]) accelerated Growth Overview Exam date GA BPD (mm) HC (mm) AC (mm) FL (mm) HL (mm) EFW (g) 12/17/2024 22w 3d 54.7 56% 209.7 63% 177.8 50% 38 30% 42 >99% 510 46% 01/14/2025 26w 5d 66 36% 255 56% 238.1 82% 52.7 75% 1150 84% Anatomy The following structures appear normal: Head / Neck Cranium. Heart / Thorax 4-chamber view. Abdomen Stomach. Kidneys. Bladder. Spine Cervical spine. Thoracic spine. Lumbar spine. Sacral spine. Extremities / Skeleton Left leg. Left foot. The following structures were documented previously: Head / Neck Lateral ventricles. Choroid plexus. Midline falx. Cavum septi pellucidi. Cerebellum. Cisterna magna. Thalami. Face Lips. Profile. Nose. Nasal bone. Orbits. Heart / Thorax RVOT view. LVOT view. 3-vessel view. 0-tzpeve-dayydff view. Situs. Aortic arch view. Bicaval view. Ductal arch view. Interventricular septum. Great vessels. Right lung. Left lung. Diaphragm. Abdomen Cord insertion. Bowel. Genitals. Extremities / Skeleton Arms. Hands. Right leg. Right foot. sex: female. Impression ========= 1) Cabrales gestation, 26w5d 2) Biometry is consistent with appropriate growth 3) The amniotic fluid volume is within normal limits 4) No abnormalities have been detected on the, now complete, anatomic survey 5) The small (20 x 13 x 14 mm) hypoechoic area adjacent to the anterior edge of the left lateral placenta is similar in size compared to the 12/17 ultrasound report Comment ======== ultrasound alone cannot detect all structural, genetic, or functional , placental, or maternal abnormalities Follow-up ======== Follow-up ultrasound only if clinically indicated Coding ====== Diagnoses O28.3: Abnormal ultrasonic finding on screening of mother O43.92: Unspecified placental disorder Z36.2: Encounter for other screening follow-up Z36.89: Encounter for other specified screening Procedures 61162: US [facility]reg [facility] Anatomical Region Laterality Modality Other 01/14/2025 11:0 1 AM CDT us Gabriella Becerra MD [facility] ORDERABLES Edited Resu lt - Final from Last 3 Months Insurance [facility] * Guarantor: HELENE ARREGUIN Account Type Relation to Patient Date of Phone Billing Address Personal/Family Spouse
[2025-02-16 20:15] VITALS: BP 116/73; PULSE 105
[2025-02-16 20:30] VITALS: BP 119/74; PULSE 112
[2025-02-16 20:31] VITALS: BMI 32.0
--- NOTE | 2025-02-16 20:31 | OBADM ---
This patient, Helene Marshall, admitted to the OB room Labor/Delivery/Recovery 119 for observation. Patient/family oriented to hospital policies and general routines including ID bracelet, bed and alarms, visiting hours, pain management, procedures, bathroom and other care routines, personal items, smoking policy, room service/diet, and visiting hours. Patient/Family are encouraged to report perceived risks to care and to ask questions if they do not understand what they are told or what they should do.
[2025-02-16 20:39] VITALS: BP 119/74; PULSE 112
--- NOTE | 2025-02-16 20:44 | PC.NURSE ---
call center coordinator , Dr. Reid Sullivan notified of pts reactive heart tracing, BPs, movement. Orders received. DC to home. Pt to follow up with Dr. Becerra on .
== END 2025-02-16 20:50 | disposition home or self-care (01) ==
LOC: ANHOBOP 20:01 → ANHLDR 20:07
PROVIDERS: Visit Provider Obstetrics & Gynecology Gynecology
DX: Z34.90 Encounter for supervision of normal pregnancy, unspecified, unspecified trimester (principal); Z3A.00 Weeks of gestation of pregnancy not specified
CPT/HCPCS: 59025; 99199

== ENCOUNTER 2025-03-06 14:47 | Outpatient (CLI) | payer OTHER, SELFPAY ==
--- NOTE | ~2025-03-06 | US_ITS ---
EXAMINATION: US OB follow up DATE: 03/06/2025 15:47 INDICATION: Long-term use of insulin. Third trimester . TECHNIQUE: Real-time ultrasound of the pelvis was performed. The interpreting radiologist was not present for the study. COMPARISON: None. FINDINGS: There is a single living fetus in vertex presentation. The placenta is anterior and not low-lying. heart rate is 129 beats per minute (bpm). The amniotic fluid index is 12.8 cm, which is normal (5th%-95%: 8.1-24.8 cm at 34 weeks estimated gestational age). The following biometric data were obtained: BPD: 8.5 cm -> 34 weeks 3 days Head circumference: 31.3 cm -> 35 weeks 0 days Abdominal circumference: 30.9 cm -> 34 weeks 6 days Femur length: 6.7 cm -> 34 weeks 4 days These measurements are concordant. Head circumference to abdominal circumference ratio: 1.01 (normal range 0.93-1.11). Estimated weight: 2501 g (+/-) 375 g or 5 lbs. 8 oz. (+/-) 13 oz. IMPRESSION: 1. Single living fetus in vertex presentation with heart rate of 129 bpm. 2. Normal amniotic fluid index of 12.8 cm. 3. Estimated weight is 66th percentile by Hadlock criteria when 04/17/2025 is used as the estimated date of delivery (ZACH). Please correlate with clinical information or earlier ultrasounds for most accurate ZACH. Reviewed, dictated and finalized at location A. CLERK IMPRESSION: 1. Single living fetus in vertex presentation with heart rate of 129 bpm. 2. Normal amniotic fluid index of 12.8 cm. 3. Estimated weight is 66th percentile by Hadlock criteria when 04/17/2025 is used as the estimated date of delivery (ZACH). Please correlate with clinica l information or earlier ultrasounds for most accurate ZACH.
--- OUTSIDE RECORDS SUMMARY | 2025-03-06 15:43 | XMS_ITS | Clinical Summary ---
Author Organization [facility] Address [address] 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 This disclosure is being madepursuant to the Care Everywhere program and may not contain all information available regarding this patient. Last updated 17.[facility] Bare Snacks Allergies Active Allergy Reactions Criticality Noted Date Comments Azithromycin Unknown 12/10/2024 Active Problems Patient Care Coordination No te Formatting of this note migh t be different from the original. [facility] [place] Problem Noted Date Diagnosed Date Normal ultrasound 01/13/2016 Estimated Date of Delivery Comme nts Yes 04/19/2025 Based on last me nstrual period of 07/13/2024 Encounters Date Type Department Care Team Description 01/14/2025 10:49 AM CDT - 01/14/2025 11:59 PM CDT Hospital Encounter [facility] [address] [place] [id number] Minerva Cantor MD Discharge Disposition: Home or Self Care 12/17/2024 10:30 AM CDT - 12/17/2024 11:59 PM CDT Hospital Encounter [facility] [address] [place] [id number] Suleiman Silva MD Boyle, Annelee C, MD [...] on file Legal 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 Gender Identity Not on file Sexual Orientation [...] yrs (1 - Risk 1-dose series) 02/22/2025 OB-GROUP B STREP SCREEN 03/15/2025 ZOSTER VACCINE (1 of 2) 2048 HIB [...] (HCC) Encounter for follow-up ultrasound of anatomy (HCC) Encounter for ultrasound to assess growth (HCC) 26 weeks gestation of (HCC) SONOGRAM - COMPLETE Routine 12/17/2024 10:37 AM CDT echogenic intracardiac focus on ultrasound Abnormal placenta affecting management of mother in second trimester (HCC) Sixth (HCC) 22 weeks gestation of ([facility]) Encounter for anatomic survey ([facility]) from Last 3 Months Results * Sonogram - Complete (01/14/2025 11:01 AM CDT) Only the most recent of2 resultswithin the time period is included. Linked Results Indication ======== Incomplete anatomy Placenta disorder, unspecified History ====== OB History 6. Para 3 [id number] 1. live 2016. Gest. age 39 w [...] 2 lb 9 oz EFW by Hadlock ([id number]) accelerated Growth Overview Exam date [place] BPD [...] Thorax RVOT view. LVOT view. 3-vessel view. 4-weqxvy-ckxcmsj view. Situs. Aortic arch view. Bicaval view. [...] Z36.89: Encounter for other specified screening Procedures 87325: US Preg Uterus Follow Up [facility] Medlert PACS Anatomical Region Laterality Modality Other 01/14/2025 11:0 1 AM CDT us Gabriella Becerra MD [facility] ORDERABLES Edited Resu lt - Final from Last 3 Months Insurance [place] [employer] [facility] [place] [employer] [facility] * Guarantor: HELENE ARREGUIN Account Type Relation to Patient Date of Phone Billing Address Personal/Family Spouse
--- OUTSIDE RECORDS SUMMARY | 2025-03-06 15:43 | XMS_ITS | Clinical Summary ---
Author Organization [facility] Address [address] [place] [address] Care Team Providers Care Lumber Scaler Name Role Phone Gabriella Becerra MD Primary [...] age to complete this topic Insurance MEDICAID [facility] PL[facility] Care Teams Lumber Scaler Relationship Specialty Start Date End Date Gabriella Becrera MD [address] [address] PCP - General Obstetrics & Gynecology 08/06/22
--- OUTSIDE RECORDS SUMMARY | 2025-03-06 15:43 | XMS_ITS | Clinical Summary ---
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
== END 2025-03-06 14:48 | disposition home or self-care (01) ==
PROVIDERS: Visit Provider Obstetrics & Gynecology Gynecology
DX: O24.414 Gestational diabetes mellitus in pregnancy, insulin controlled (principal); O32.0XX0 Maternal care for unstable lie, not applicable or unspecified; Z79.4 Long term (current) use of insulin; Z3A.00 Weeks of gestation of pregnancy not specified
CPT/HCPCS: 76816